=== PATIENT | male | born 1995 ===

== ENCOUNTER 2019-08-31 01:51 | Emergency (ER) | payer SELFPAY ==
[2019-08-31] MEDS ORDERED: methylPREDNISolone Sodium Succinate 125 MG/2 ML SDV IM ONE (02:19)
[2019-08-31] MEDS ORDERED: diphenhydrAMINE 50 MG Cap PO ONE (02:19)
--- NOTE | 2019-08-31 02:24 | EDM.PDOC ---
ED HPI GENERAL MEDICAL PROBLEM - General Chief Complaint: Allergic Reaction Stated Complaint: ALLERGIC REACTION Time Seen by Provider: 08/31/19 02:20 Source of Information: Reports: Patient History Limitations: Reports: No Limitations - History of Present Illness INITIAL COMMENTS - FREE TEXT/NARRATIVE: Patient presented to the ED because of an insect bite on the left side of his face last night and now he also have urticaria on his arm and torso. He denies any dyspnea,N/V. - Related Data Allergies Allergy/AdvReac Type Severity Reaction Status Date / Time No Known Allergies Allergy Verified 08/31/19 02:03 Home Meds: Home Meds predniSONE [Prednisone] 40 mg PO DAILY #10 tablet 08/31/19 [Rx] Social & Family History - Tobacco Use Smoking Status *Q: Never Smoker - Alcohol Use Days Per Week of Alcohol Use: 2 Number of Drinks Per Day: 2 Total Drinks Per Week: 4 - Recreational Drug Use Recreational Drug Use: No ED ROS ALLERGIC REACTION - Review of Systems Review Of Systems: See Below Constitutional: Reports: No Symptoms HEENT: Reports: No Symptoms Respiratory: Reports: No Symptoms Cardiovascular: Reports: No Symptoms Endocrine: Reports: No Symptoms GI/Abdominal: Reports: No Symptoms Musculoskeletal: Reports: No Symptoms Skin: Reports: Pruritis, Rash ED EXAM GENERAL NO PERIP PULSE - Physical Exam Exam: See Below Exam Limited By: No Limitations General Appearance: Alert, No Apparent Distress Eye Exam: Bilateral Eye: PERRL Ears: Normal External Exam, Normal Canal Nose: Normal Inspection, Normal Mucosa, No Blood Throat/Mouth: Normal Inspection, Normal Lips, Normal Teeth Head: Atraumatic, Normocephalic Neck: Normal Inspection, Supple, Non-Tender Respiratory/Chest: No Respiratory Distress, Lungs Clear, Normal Breath Sounds Cardiovascular: Normal Peripheral Pulses, Regular Rate, Rhythm, No Edema, No Gallop GI/Abdominal: Normal Bowel Sounds, Soft, Non-Tender, No Organomegaly Back Exam: Normal Inspection, Full Range of Motion Extremities: Normal Inspection, Normal Range of Motion Neurological: Alert, Oriented, CN II-XII Intact, Normal Cognition Skin Exam: Warm, Rash Course - Vital Signs Text/Narrative:: Benadryl 50 mg po x1 Solumedrol 125 mg IM x1 Last Recorded V/S: Last Vital Signs Temp 36.9 C 08/31/19 02:07 Pulse 100 08/31/19 02:07 Resp 16 08/31/19 02:07 BP 177/74 H 08/31/19 02:07 Pulse Ox 98 08/31/19 02:07 - Orders/Labs/Meds Meds: Medications Discontinued Medications Generic Name Dose Route Start Last Admin Trade Name Jimenez PRN Reason Stop Dose Admin Diphenhydramine HCl 50 mg 08/31/19 02:19 08/31/19 02:32 Benadryl PO 08/31/19 02:20 50 mg ONETIME ONE Administration Methylprednisolone Sodium Succinate 125 mg 08/31/19 02:19 08/31/19 02:31 Solu-Medrol IM 08/31/19 02:20 125 mg ONETIME ONE Administration Departure - Departure Time of Disposition: 02:25 Disposition: Home, Self-Care 01 Condition: Good Clinical Impression: Insect bite - Discharge Information Prescriptions: predniSONE [Prednisone] 40 mg PO DAILY #10 tablet Instructions: Insect Bite, Adult Referrals: PCP,None [Primary Care Provider] - Forms: ED Department Discharge Additional Instructions: please read discharge instructions on insect bite apply ice on swollen areas of your face prednisone 20 mg, take 2 tablets once daily for 5 days benadryl 50 mg every 4-6 hours as needed for itching follow up as needed Sepsis Event Note - Evaluation Sepsis Screening Result: No Definite Risk - Focused Exam Vital Signs: Vital Signs Temp Pulse Resp BP Pulse Ox 08/31/19 02:07 36.9 C 100 16 177/74 H 98 Date Exam was Performed: 08/31/19 Time Exam was Performed: 06:02
== END 2019-08-31 02:45 | disposition home or self-care (01) ==
LOC: FB.ED 01:51
DX: S00.86XA Insect bite (nonvenomous) of other part of head, initial encounter (principal); W57.XXXA Bitten or stung by nonvenomous insect and other nonvenomous arthropods, initial encounter
CPT/HCPCS: 96372; 99282; A9270; J2930